=== PATIENT | female | born 1975 | race Caucasian/White ===

== ENCOUNTER 2017-07-04 08:12 | Outpatient (CLI) | payer OTHER ==
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
[2017-07-04] MEDS ORDERED: Gadobenate Dimeglumine 529 MG/1 ML (20ML VIAL) ONE (20:23)
== END 2017-07-04 08:13 | disposition home or self-care (01) ==
LOC: MRI 08:12
PROVIDERS: ATTEND Internal Medicine Hematology & Oncology
DX: H53.8 Other visual disturbances (principal); R51 Headache; R42 Dizziness and giddiness; Z85.3 Personal history of malignant neoplasm of breast
CPT/HCPCS: 70553; A9579